=== PATIENT | female | born 1955 | race Caucasian/White ===

== ENCOUNTER 2018-07-30 10:28 | Day surgery (SDC) | payer MEDICARE, OTHER ==
[2018-07-30] MEDS ORDERED: PROPOFOL 40 ML (11:50)
== END 2018-07-30 13:07 | disposition home or self-care (01) ==
LOC: GIL 10:28
DX: K29.41 Chronic atrophic gastritis with bleeding (principal); R19.4 Change in bowel habit; K64.8 Other hemorrhoids; K57.31 Diverticulosis of large intestine without perforation or abscess with bleeding; I10 Essential (primary) hypertension; E03.9 Hypothyroidism, unspecified; E78.5 Hyperlipidemia, unspecified; K44.9 Diaphragmatic hernia without obstruction or gangrene
CPT/HCPCS: 43235; 88305; 88312